=== PATIENT | female | born 1965 | race Caucasian/White ===

== ENCOUNTER 2017-07-17 12:22 | Inpatient (IN) | payer OTHER ==
[~2017-07-17] VITALS: Ht 157.5 cm; Wt 61.0 kg
[~2017-07-17 12:22] MED LIST: Augmentin 875-1 EACH PO; IBUP600 PO; PENVK500 PO; Prednisone20 MG PO; TRAM50 PO; [UNRECOGNIZED DRUG - OTHER] PO
[2017-07-17 12:33] LABS: PCO2 Arterial 29.8 mmHg (35-45); PO2 Arterial 54.6 mmHg (80-100); pH Blood Arterial 7.44 (7.35-7.45)
[2017-07-17 12:50] LABS: Calcium, Ionized (POC) 1.03 mmol/L (1.10-1.46); Chloride (POC) 91 mmol/L (98-108); Creatinine (POC) 0.6 mg/dL (0.6-1.0); Glucose (ISTAT POC) 252 mg/dL (70-99); Hemoglobin (POC) 17.7 g/dL (12.0-16.0); Potassium (POC) 3.9 mmol/L (3.5-5.5); Sodium (POC) 129 mmol/L (135-148); Total CO2 (POC) 23 mmol/L (21-32)
[2017-07-17 12:57] LABS: Hematocrit 47.4 % (33.0-51.0); Hemoglobin 16.6 g/dL (11.5-16.0); Mean Corpuscular Volume 88 fL (80-100); Mean Platelet Volume 9.8 fL (9.1-12.4); Platelet Count 203 K/mm3 (150-400); RDW Coefficient Variation 12.2 % (11.7-14.2); RDW Standard Deviation 39.9 fL (35.1-46.3); Red Blood Cell Count 5.36 M/mm3 (3.80-5.20); White Blood Cell Count 3.96 K/mm3 (4.00-11.30)
[2017-07-17 13:09] LABS: Source, Urine Catheter
[2017-07-17 13:09] LABS: International Normalized Ratio 1.08; Prothrombin Time Results 11.3 Sec (9.7-11.5)
[2017-07-17 13:12] LABS: Bilirubin, Urine Neg (Neg); Blood, Urine 3+ (Neg); Glucose Qualitative, Urine 4+ (Neg); Ketones, Urine 4+ (Neg); Leukocyte Esterase, Urine Neg (Neg); Nitrite, Urine Neg (Neg); Protein, Urine 3+ (Neg); Urobilinogen, Urine NORM (Normal)
[2017-07-17 13:16] LABS: Alanine Aminotransfer (ALT/SGP 27 U/L (12-78); Albumin, Blood 3.2 g/dL (3.4-5.0); Albumin/Globulin Ratio 0.6 (0.8-1.8); Alk Phos 65 U/L (50-136); Anion Gap 13 mmol/L (6-16); Aspartate Aminotrans (AST/SGOT 41 U/L (12-37); Bilirubin, Total 0.9 mg/dL (0.1-1.0); Blood Urea Nitrogen 14 mg/dL (8-24); Bun/Creatinine Ratio 23.3 (12.0-20.0); CO2, Blood 21 mmol/L (21-32); Calcium, Blood 9.2 mg/dL (8.5-10.1); Chloride, Blood 92 mmol/L (98-108); Globulin, Blood 5.7 g/dL (2.2-4.0); Glomerular Filtration Rate >60 (60-); Glucose, Blood 237 mg/dL (70-99); Potassium, Blood 3.9 mmol/L (3.5-5.5); Sodium, Blood 126 mmol/L (136-145); Total Protein, Blood 8.9 g/dL (6.4-8.2)
[2017-07-17 13:20] LABS: BASOPHILS PERCENT MAN 0 % (0-2); EOSINOPHILS PERCENT MAN 0 % (0-6); LYMPHOCYTES % ATYPICAL MANUAL 7 % (0-0); LYMPHOCYTES ABSOLUTE MAN 0.95 K/mm3 (0.84-5.20); LYMPHOCYTES PERCENT MAN 17 % (21-46); MONOCYTES ABSOLUTE MAN 0.39 K/mm3 (0.16-1.47); MONOCYTES PERCENT MAN 10 % (4-13); NEUTROPHILS ABSOLUTE MAN 2.61 K/mm3 (1.96-9.15); SEG NEUTROPHILS PERCENT MAN 66 % (41-73); TOTAL CELLS COUNTED 100
[2017-07-17 13:21] LABS: Appearance, Urine Clear (Clear); Color, Urine Yellow (P-Yellow)
[2017-07-17 13:22] LABS: Red Blood Cells, Urine 0-2 /hpf (0-2); White Blood Cells, Urine 0-2 /hpf (0-5)
[2017-07-17 13:23] LABS: Amorphous Light (0-Heavy); Bacteria Mod /hpf; Squamous Epithelial Cells Not Seen /hpf (Few)
[2017-07-17 13:41] LABS: Influenza A Negative (NEGATIVE); Influenza B Negative (NEGATIVE)
[2017-07-17 15:10] LABS: D-Dimer, Quantitative 4.88 mg/L FEU (0.00-0.52)
[2017-07-17] MEDS ORDERED: Advil200 M1 PO (15:40)
[2017-07-18 04:02] LABS: BASOPHILS ABSOLUTE AUTO 0.04 K/mm3 (0.00-0.23); BASOPHILS PERCENT AUTO 1 % (0-2); Hematocrit 36.6 % (33.0-51.0); Hemoglobin 12.6 g/dL (11.5-16.0); LYMPHOCYTES ABSOLUTE AUTO 0.54 K/mm3 (0.84-5.20); LYMPHOCYTES PERCENT AUTO 15 % (21-46); MONOCYTES ABSOLUTE AUTO 0.16 K/mm3 (0.16-1.47); MONOCYTES PERCENT AUTO 4 % (4-13); Mean Corpuscular HGB 30.7 pg (26.0-34.0); Mean Corpuscular HGB Conc 34.4 g/dL (31.5-36.5); Mean Corpuscular Volume 89 fL (80-100); Mean Platelet Volume 9.5 fL (9.1-12.4); Platelet Count 119 K/mm3 (150-400); RDW Coefficient Variation 12.1 % (11.7-14.2); White Blood Cell Count 3.64 K/mm3 (4.00-11.30)
[2017-07-18 04:15] LABS: EOSINOPHILS PERCENT AUTO 0 % (0-6); IMMATURE GRAN ABSOLUTE AUTO 0.02 K/mm3 (0.00-0.10); IMMATURE GRAN PERCENT AUTO 1 % (0-1); NEUTROPHILS ABSOLUTE AUTO 2.88 K/mm3 (1.96-9.15); NEUTROPHILS PERCENT AUTO 79 % (41-73)
[2017-07-18 04:17] LABS: International Normalized Ratio 1.26; Prothrombin Time Results 13.2 Sec (9.7-11.5)
[2017-07-18 04:22] LABS: Magnesium, Blood 1.6 mg/dL (1.6-2.4)
[2017-07-18 04:40] LABS: Alanine Aminotransfer (ALT/SGP 15 U/L (12-78); Albumin, Blood 1.9 g/dL (3.4-5.0); Albumin/Globulin Ratio 0.5 (0.8-1.8); Alk Phos 32 U/L (50-136); Aspartate Aminotrans (AST/SGOT 24 U/L (12-37); Bilirubin, Total 0.7 mg/dL (0.1-1.0); Blood Urea Nitrogen 7 mg/dL (8-24); Bun/Creatinine Ratio 16.1 (12.0-20.0); CO2, Blood 24 mmol/L (21-32); Chloride, Blood 105 mmol/L (98-108); Creatinine, Blood 0.43 mg/dL (0.40-1.00); Glomerular Filtration Rate >60 (60-); Glucose, Blood 160 mg/dL (70-99); Phosphorus, Blood 1.2 mg/dL (2.5-4.9); Potassium, Blood 3.1 mmol/L (3.5-5.5)
[2017-07-18 04:41] LABS: Anion Gap 9 mmol/L (6-16); Calcium, Blood 7.8 mg/dL (8.5-10.1); Sodium, Blood 138 mmol/L (136-145); Total Protein, Blood 5.9 g/dL (6.4-8.2)
[2017-07-18 04:50] LABS: BAND PERCENT MAN 33 % (0-8); BASOPHILS PERCENT MAN 0 % (0-2); EOSINOPHILS PERCENT MAN 0 % (0-6); LYMPHOCYTES ABSOLUTE MAN 0.61 K/mm3 (0.84-5.20); LYMPHOCYTES PERCENT MAN 17 % (21-46); METAMYELOCYTE PERCENT MAN 14 % (0-0); MONOCYTES ABSOLUTE MAN 0.18 K/mm3 (0.16-1.47); MONOCYTES PERCENT MAN 5 % (4-13); MYELOCYTE ABSOLUTE MAN 0.03 K/mm3 (0.00-0.00); MYELOCYTE PERCENT MAN 1 % (0-0); NEUTROPHILS ABSOLUTE MAN 2.29 K/mm3 (1.96-9.15); SEG NEUTROPHILS PERCENT MAN 30 % (41-73); TOTAL CELLS COUNTED 100
[2017-07-19 04:07] LABS: Hematocrit 33.3 % (33.0-51.0); Hemoglobin 11.7 g/dL (11.5-16.0); Mean Corpuscular HGB 31.5 pg (26.0-34.0); Mean Corpuscular HGB Conc 35.1 g/dL (31.5-36.5); Mean Corpuscular Volume 90 fL (80-100); Mean Platelet Volume 9.7 fL (9.1-12.4); Platelet Count 160 K/mm3 (150-400); RDW Coefficient Variation 12.6 % (11.7-14.2); Red Blood Cell Count 3.72 M/mm3 (3.80-5.20); White Blood Cell Count 7.72 K/mm3 (4.00-11.30)
[2017-07-19 04:29] LABS: Alanine Aminotransfer (ALT/SGP 14 U/L (12-78); Albumin, Blood 1.7 g/dL (3.4-5.0); Albumin/Globulin Ratio 0.4 (0.8-1.8); Alk Phos 35 U/L (50-136); Anion Gap 9 mmol/L (6-16); Aspartate Aminotrans (AST/SGOT 24 U/L (12-37); Bilirubin, Total 0.6 mg/dL (0.1-1.0); Blood Urea Nitrogen 7 mg/dL (8-24); Bun/Creatinine Ratio 18.8 (12.0-20.0); CO2, Blood 26 mmol/L (21-32); Chloride, Blood 105 mmol/L (98-108); Creatinine, Blood 0.37 mg/dL (0.40-1.00); Globulin, Blood 3.9 g/dL (2.2-4.0); Glomerular Filtration Rate >60 (60-); Glucose, Blood 79 mg/dL (70-99); Magnesium, Blood 2.1 mg/dL (1.6-2.4); Phosphorus, Blood 1.6 mg/dL (2.5-4.9); Potassium, Blood 3.2 mmol/L (3.5-5.5); Sodium, Blood 140 mmol/L (136-145); Total Protein, Blood 5.6 g/dL (6.4-8.2)
[2017-07-19 05:18] LABS: BAND PERCENT MAN 26 % (0-8); BASOPHILS PERCENT MAN 0 % (0-2); EOSINOPHILS PERCENT MAN 0 % (0-6); LYMPHOCYTES % ATYPICAL MANUAL 4 % (0-0); LYMPHOCYTES ABSOLUTE MAN 0.92 K/mm3 (0.84-5.20); LYMPHOCYTES PERCENT MAN 8 % (21-46); METAMYELOCYTE PERCENT MAN 4 % (0-0); MONOCYTES PERCENT MAN 4 % (4-13); NEUTROPHILS ABSOLUTE MAN 6.17 K/mm3 (1.96-9.15); SEG NEUTROPHILS PERCENT MAN 54 % (41-73); TOTAL CELLS COUNTED 100
[2017-07-19 05:27] LABS: International Normalized Ratio 1.08; Prothrombin Time Results 11.3 Sec (9.7-11.5)
[2017-07-20 04:50] LABS: Hemoglobin 11.2 g/dL (11.5-16.0); Mean Corpuscular HGB 30.8 pg (26.0-34.0); Mean Corpuscular Volume 88 fL (80-100); Mean Platelet Volume 9.6 fL (9.1-12.4); NRBC ABSOLUTE 0.03 K/mm3 (0.00-0.02); NRBC Auto 0.3 /100 WBC (0.0-0.2); Platelet Count 205 K/mm3 (150-400); RDW Coefficient Variation 12.6 % (11.7-14.2); RDW Standard Deviation 40.7 fL (35.1-46.3); Red Blood Cell Count 3.64 M/mm3 (3.80-5.20)
[2017-07-20 05:09] LABS: Alanine Aminotransfer (ALT/SGP 16 U/L (12-78); Albumin, Blood 1.5 g/dL (3.4-5.0); Albumin/Globulin Ratio 0.4 (0.8-1.8); Alk Phos 72 U/L (50-136); Anion Gap 11 mmol/L (6-16); Aspartate Aminotrans (AST/SGOT 21 U/L (12-37); Bilirubin, Total 1.1 mg/dL (0.1-1.0); Blood Urea Nitrogen 6 mg/dL (8-24); Bun/Creatinine Ratio 14.3 (12.0-20.0); CO2, Blood 26 mmol/L (21-32); Calcium, Blood 8.1 mg/dL (8.5-10.1); Chloride, Blood 103 mmol/L (98-108); Creatinine, Blood 0.42 mg/dL (0.40-1.00); Globulin, Blood 4.2 g/dL (2.2-4.0); Glomerular Filtration Rate >60 (60-); Glucose, Blood 142 mg/dL (70-99); Potassium, Blood 2.8 mmol/L (3.5-5.5); Sodium, Blood 140 mmol/L (136-145); Total Protein, Blood 5.7 g/dL (6.4-8.2)
[2017-07-20 05:11] LABS: BAND PERCENT MAN 7 % (0-8); BASOPHILS PERCENT MAN 0 % (0-2); EOSINOPHILS ABSOLUTE MAN 0.19 K/mm3 (0.00-0.68); EOSINOPHILS PERCENT MAN 2 % (0-6); LYMPHOCYTES % ATYPICAL MANUAL 1 % (0-0); LYMPHOCYTES ABSOLUTE MAN 0.68 K/mm3 (0.84-5.20); LYMPHOCYTES PERCENT MAN 6 % (21-46); MONOCYTES ABSOLUTE MAN 0.19 K/mm3 (0.16-1.47); MONOCYTES PERCENT MAN 2 % (4-13); NEUTROPHILS ABSOLUTE MAN 8.72 K/mm3 (1.96-9.15); SEG NEUTROPHILS PERCENT MAN 82 % (41-73); TOTAL CELLS COUNTED 100
[2017-07-20 06:42] LABS: Phosphorus, Blood 1.3 mg/dL (2.5-4.9)
[2017-07-20 08:08] LABS: Source, Urine Catheter
[2017-07-20 08:12] LABS: Bilirubin, Urine Neg (Neg); Blood, Urine Neg (Neg); Glucose Qualitative, Urine 4+ (Neg); Ketones, Urine 2+ (Neg); Leukocyte Esterase, Urine Neg (Neg); Nitrite, Urine Neg (Neg); Protein, Urine Neg (Neg); Specific Gravity, Urine 1.005 (1.003-1.022); Urobilinogen, Urine NORM (Normal)
[2017-07-20 08:20] LABS: Appearance, Urine Clear (Clear); Color, Urine Yellow (P-Yellow)
[2017-07-20 17:27] LABS: Magnesium, Blood 1.8 mg/dL (1.6-2.4)
[2017-07-20 17:28] LABS: Phosphorus, Blood 3.7 mg/dL (2.5-4.9)
[2017-07-21 04:02] LABS: Hematocrit 32.4 % (33.0-51.0); Mean Corpuscular HGB 30.6 pg (26.0-34.0); Mean Corpuscular Volume 90 fL (80-100); Mean Platelet Volume 9.4 fL (9.1-12.4); NRBC ABSOLUTE 0.02 K/mm3 (0.00-0.02); NRBC Auto 0.2 /100 WBC (0.0-0.2); Platelet Count 236 K/mm3 (150-400); RDW Coefficient Variation 13.2 % (11.7-14.2); RDW Standard Deviation 43.9 fL (35.1-46.3)
[2017-07-21 04:28] LABS: Magnesium, Blood 1.9 mg/dL (1.6-2.4)
[2017-07-21 04:29] LABS: Anion Gap 9 mmol/L (6-16); Blood Urea Nitrogen 6 mg/dL (8-24); Bun/Creatinine Ratio 14.8 (12.0-20.0); CO2, Blood 26 mmol/L (21-32); Calcium, Blood 7.8 mg/dL (8.5-10.1); Chloride, Blood 104 mmol/L (98-108); Creatinine, Blood 0.41 mg/dL (0.40-1.00); Glomerular Filtration Rate >60 (60-); Glucose, Blood 202 mg/dL (70-99); Phosphorus, Blood 2.8 mg/dL (2.5-4.9); Potassium, Blood 3.5 mmol/L (3.5-5.5); Sodium, Blood 139 mmol/L (136-145)
[2017-07-21 05:12] LABS: BAND PERCENT MAN 5 % (0-8); BASOPHILS PERCENT MAN 0 % (0-2); EOSINOPHILS PERCENT MAN 0 % (0-6); LYMPHOCYTES ABSOLUTE MAN 1.72 K/mm3 (0.84-5.20); LYMPHOCYTES PERCENT MAN 13 % (21-46); MONOCYTES ABSOLUTE MAN 0.79 K/mm3 (0.16-1.47); MONOCYTES PERCENT MAN 6 % (4-13); NEUTROPHILS ABSOLUTE MAN 10.77 K/mm3 (1.96-9.15); SEG NEUTROPHILS PERCENT MAN 76 % (41-73); TOTAL CELLS COUNTED 100
[2017-07-22 04:23] LABS: Hematocrit 29.5 % (33.0-51.0); Mean Corpuscular HGB 30.9 pg (26.0-34.0); Mean Corpuscular HGB Conc 33.9 g/dL (31.5-36.5); Mean Corpuscular Volume 91 fL (80-100); Mean Platelet Volume 9.3 fL (9.1-12.4); NRBC ABSOLUTE 0.02 K/mm3 (0.00-0.02); NRBC Auto 0.2 /100 WBC (0.0-0.2); Platelet Count 239 K/mm3 (150-400); RDW Coefficient Variation 13.3 % (11.7-14.2); RDW Standard Deviation 44.6 fL (35.1-46.3); Red Blood Cell Count 3.24 M/mm3 (3.80-5.20); White Blood Cell Count 13.23 K/mm3 (4.00-11.30)
[2017-07-22 04:42] LABS: Alanine Aminotransfer (ALT/SGP 18 U/L (12-78); Albumin, Blood 1.4 g/dL (3.4-5.0); Albumin/Globulin Ratio 0.3 (0.8-1.8); Alk Phos 92 U/L (50-136); Anion Gap 10 mmol/L (6-16); Aspartate Aminotrans (AST/SGOT 25 U/L (12-37); Bilirubin, Total 0.8 mg/dL (0.1-1.0); Blood Urea Nitrogen 9 mg/dL (8-24); Bun/Creatinine Ratio 19.9 (12.0-20.0); CO2, Blood 27 mmol/L (21-32); Chloride, Blood 106 mmol/L (98-108); Creatinine, Blood 0.45 mg/dL (0.40-1.00); Globulin, Blood 4.6 g/dL (2.2-4.0); Glomerular Filtration Rate >60 (60-); Glucose, Blood 161 mg/dL (70-99); Magnesium, Blood 2.1 mg/dL (1.6-2.4); Phosphorus, Blood 2.8 mg/dL (2.5-4.9); Potassium, Blood 3.9 mmol/L (3.5-5.5); Sodium, Blood 143 mmol/L (136-145)
[2017-07-22 05:09] LABS: PCO2 Arterial 38.4 mmHg (35-45); PO2 Arterial 82.3 mmHg (80-100); pH Blood Arterial 7.44 (7.35-7.45)
[2017-07-22 05:15] LABS: BAND PERCENT MAN 2 % (0-8); BASOPHILS PERCENT MAN 0 % (0-2); EOSINOPHILS PERCENT MAN 0 % (0-6); LYMPHOCYTES ABSOLUTE MAN 1.19 K/mm3 (0.84-5.20); LYMPHOCYTES PERCENT MAN 9 % (21-46); MONOCYTES ABSOLUTE MAN 0.79 K/mm3 (0.16-1.47); MONOCYTES PERCENT MAN 6 % (4-13); NEUTROPHILS ABSOLUTE MAN 11.24 K/mm3 (1.96-9.15); SEG NEUTROPHILS PERCENT MAN 83 % (41-73); TOTAL CELLS COUNTED 100
[2017-07-22 14:32] LABS: Heparin PF4 Screen 0.126 OD (<0.400)
[2017-07-23 04:05] LABS: BASOPHILS ABSOLUTE AUTO 0.02 K/mm3 (0.00-0.23); BASOPHILS PERCENT AUTO 0 % (0-2); EOSINOPHILS ABSOLUTE AUTO 0.08 K/mm3 (0.00-0.68); EOSINOPHILS PERCENT AUTO 1 % (0-6); Hematocrit 28.6 % (33.0-51.0); Hemoglobin 9.6 g/dL (11.5-16.0); IMMATURE GRAN ABSOLUTE AUTO 0.34 K/mm3 (0.00-0.10); IMMATURE GRAN PERCENT AUTO 2 % (0-1); LYMPHOCYTES ABSOLUTE AUTO 1.32 K/mm3 (0.84-5.20); LYMPHOCYTES PERCENT AUTO 9 % (21-46); MONOCYTES ABSOLUTE AUTO 0.74 K/mm3 (0.16-1.47); MONOCYTES PERCENT AUTO 5 % (4-13); Mean Corpuscular HGB 30.9 pg (26.0-34.0); Mean Corpuscular HGB Conc 33.6 g/dL (31.5-36.5); Mean Corpuscular Volume 92 fL (80-100); Mean Platelet Volume 9.7 fL (9.1-12.4); NEUTROPHILS ABSOLUTE AUTO 12.71 K/mm3 (1.96-9.15); NEUTROPHILS PERCENT AUTO 84 % (41-73); NRBC ABSOLUTE 0.03 K/mm3 (0.00-0.02); NRBC Auto 0.2 /100 WBC (0.0-0.2); Platelet Count 237 K/mm3 (150-400); RDW Coefficient Variation 13.6 % (11.7-14.2); Red Blood Cell Count 3.11 M/mm3 (3.80-5.20); White Blood Cell Count 15.21 K/mm3 (4.00-11.30)
[2017-07-23 04:28] LABS: Anion Gap 7 mmol/L (6-16); Blood Urea Nitrogen 8 mg/dL (8-24); Bun/Creatinine Ratio 19.9 (12.0-20.0); CO2, Blood 28 mmol/L (21-32); Calcium, Blood 7.5 mg/dL (8.5-10.1); Chloride, Blood 105 mmol/L (98-108); Glomerular Filtration Rate >60 (60-); Glucose, Blood 185 mg/dL (70-99); Magnesium, Blood 1.9 mg/dL (1.6-2.4); Phosphorus, Blood 3.2 mg/dL (2.5-4.9); Potassium, Blood 3.8 mmol/L (3.5-5.5); Sodium, Blood 140 mmol/L (136-145)
[2017-07-24 03:48] LABS: BASOPHILS ABSOLUTE AUTO 0.02 K/mm3 (0.00-0.23); BASOPHILS PERCENT AUTO 0 % (0-2); EOSINOPHILS ABSOLUTE AUTO 0.05 K/mm3 (0.00-0.68); EOSINOPHILS PERCENT AUTO 0 % (0-6); Hematocrit 27.2 % (33.0-51.0); IMMATURE GRAN PERCENT AUTO 2 % (0-1); LYMPHOCYTES ABSOLUTE AUTO 1.69 K/mm3 (0.84-5.20); LYMPHOCYTES PERCENT AUTO 14 % (21-46); MONOCYTES ABSOLUTE AUTO 0.55 K/mm3 (0.16-1.47); MONOCYTES PERCENT AUTO 5 % (4-13); Mean Corpuscular HGB 30.5 pg (26.0-34.0); Mean Corpuscular HGB Conc 33.1 g/dL (31.5-36.5); Mean Corpuscular Volume 92 fL (80-100); Mean Platelet Volume 9.7 fL (9.1-12.4); NEUTROPHILS ABSOLUTE AUTO 9.36 K/mm3 (1.96-9.15); NEUTROPHILS PERCENT AUTO 79 % (41-73); NRBC ABSOLUTE 0.02 K/mm3 (0.00-0.02); NRBC Auto 0.2 /100 WBC (0.0-0.2); Platelet Count 212 K/mm3 (150-400); RDW Coefficient Variation 13.6 % (11.7-14.2); RDW Standard Deviation 45.1 fL (35.1-46.3); Red Blood Cell Count 2.95 M/mm3 (3.80-5.20); White Blood Cell Count 11.87 K/mm3 (4.00-11.30)
[2017-07-24 04:14] LABS: Alanine Aminotransfer (ALT/SGP 27 U/L (12-78); Albumin/Globulin Ratio 0.5 (0.8-1.8); Alk Phos 114 U/L (50-136); Anion Gap 8 mmol/L (6-16); Aspartate Aminotrans (AST/SGOT 44 U/L (12-37); Bilirubin, Total 1.1 mg/dL (0.1-1.0); Blood Urea Nitrogen 8 mg/dL (8-24); Bun/Creatinine Ratio 18.1 (12.0-20.0); CO2, Blood 28 mmol/L (21-32); Calcium, Blood 7.7 mg/dL (8.5-10.1); Chloride, Blood 102 mmol/L (98-108); Creatinine, Blood 0.44 mg/dL (0.40-1.00); Glomerular Filtration Rate >60 (60-); Glucose, Blood 186 mg/dL (70-99); Potassium, Blood 3.6 mmol/L (3.5-5.5); Sodium, Blood 138 mmol/L (136-145)
[2017-07-24 05:16] LABS: PO2 Arterial 64.8 mmHg (80-100); pH Blood Arterial 7.51 (7.35-7.45)
[2017-07-25 03:54] LABS: BASOPHILS ABSOLUTE AUTO 0.02 K/mm3 (0.00-0.23); BASOPHILS PERCENT AUTO 0 % (0-2); EOSINOPHILS ABSOLUTE AUTO 0.05 K/mm3 (0.00-0.68); EOSINOPHILS PERCENT AUTO 1 % (0-6); Hematocrit 27.2 % (33.0-51.0); IMMATURE GRAN ABSOLUTE AUTO 0.13 K/mm3 (0.00-0.10); IMMATURE GRAN PERCENT AUTO 1 % (0-1); LYMPHOCYTES ABSOLUTE AUTO 1.37 K/mm3 (0.84-5.20); LYMPHOCYTES PERCENT AUTO 13 % (21-46); MONOCYTES ABSOLUTE AUTO 0.53 K/mm3 (0.16-1.47); MONOCYTES PERCENT AUTO 5 % (4-13); Mean Corpuscular HGB 30.3 pg (26.0-34.0); Mean Corpuscular HGB Conc 33.1 g/dL (31.5-36.5); Mean Corpuscular Volume 92 fL (80-100); Mean Platelet Volume 9.5 fL (9.1-12.4); NEUTROPHILS ABSOLUTE AUTO 8.34 K/mm3 (1.96-9.15); NEUTROPHILS PERCENT AUTO 80 % (41-73); NRBC ABSOLUTE 0.02 K/mm3 (0.00-0.02); NRBC Auto 0.2 /100 WBC (0.0-0.2); Platelet Count 256 K/mm3 (150-400); RDW Coefficient Variation 13.4 % (11.7-14.2); Red Blood Cell Count 2.97 M/mm3 (3.80-5.20); White Blood Cell Count 10.44 K/mm3 (4.00-11.30)
[2017-07-25 04:12] LABS: Alanine Aminotransfer (ALT/SGP 58 U/L (12-78); Albumin, Blood 1.8 g/dL (3.4-5.0); Albumin/Globulin Ratio 0.4 (0.8-1.8); Alk Phos 150 U/L (50-136); Anion Gap 7 mmol/L (6-16); Aspartate Aminotrans (AST/SGOT 87 U/L (12-37); Bilirubin, Total 1.2 mg/dL (0.1-1.0); Blood Urea Nitrogen 5 mg/dL (8-24); Bun/Creatinine Ratio 12.9 (12.0-20.0); CO2, Blood 29 mmol/L (21-32); Calcium, Blood 7.4 mg/dL (8.5-10.1); Chloride, Blood 102 mmol/L (98-108); Creatinine, Blood 0.39 mg/dL (0.40-1.00); Globulin, Blood 4.4 g/dL (2.2-4.0); Glomerular Filtration Rate >60 (60-); Glucose, Blood 188 mg/dL (70-99); Potassium, Blood 3.1 mmol/L (3.5-5.5); Sodium, Blood 138 mmol/L (136-145); Total Protein, Blood 6.2 g/dL (6.4-8.2)
[2017-07-26 04:08] LABS: BASOPHILS ABSOLUTE AUTO 0.01 K/mm3 (0.00-0.23); BASOPHILS PERCENT AUTO 0 % (0-2); EOSINOPHILS ABSOLUTE AUTO 0.05 K/mm3 (0.00-0.68); EOSINOPHILS PERCENT AUTO 1 % (0-6); Hematocrit 26.8 % (33.0-51.0); Hemoglobin 8.9 g/dL (11.5-16.0); IMMATURE GRAN ABSOLUTE AUTO 0.16 K/mm3 (0.00-0.10); IMMATURE GRAN PERCENT AUTO 2 % (0-1); LYMPHOCYTES ABSOLUTE AUTO 1.57 K/mm3 (0.84-5.20); LYMPHOCYTES PERCENT AUTO 16 % (21-46); MONOCYTES ABSOLUTE AUTO 0.62 K/mm3 (0.16-1.47); MONOCYTES PERCENT AUTO 7 % (4-13); Mean Corpuscular HGB 30.8 pg (26.0-34.0); Mean Corpuscular HGB Conc 33.2 g/dL (31.5-36.5); Mean Corpuscular Volume 93 fL (80-100); Mean Platelet Volume 9.8 fL (9.1-12.4); NEUTROPHILS ABSOLUTE AUTO 7.18 K/mm3 (1.96-9.15); NEUTROPHILS PERCENT AUTO 75 % (41-73); Platelet Count 307 K/mm3 (150-400); RDW Coefficient Variation 13.8 % (11.7-14.2); RDW Standard Deviation 46.1 fL (35.1-46.3); Red Blood Cell Count 2.89 M/mm3 (3.80-5.20); White Blood Cell Count 9.59 K/mm3 (4.00-11.30)
[2017-07-26 04:29] LABS: Alanine Aminotransfer (ALT/SGP 47 U/L (12-78); Albumin, Blood 1.8 g/dL (3.4-5.0); Albumin/Globulin Ratio 0.4 (0.8-1.8); Alk Phos 140 U/L (50-136); Anion Gap 8 mmol/L (6-16); Aspartate Aminotrans (AST/SGOT 44 U/L (12-37); Bilirubin, Total 0.7 mg/dL (0.1-1.0); Blood Urea Nitrogen 4 mg/dL (8-24); Bun/Creatinine Ratio 8.6 (12.0-20.0); CO2, Blood 26 mmol/L (21-32); Calcium, Blood 7.7 mg/dL (8.5-10.1); Chloride, Blood 106 mmol/L (98-108); Creatinine, Blood 0.47 mg/dL (0.40-1.00); Globulin, Blood 4.6 g/dL (2.2-4.0); Glomerular Filtration Rate >60 (60-); Glucose, Blood 240 mg/dL (70-99); Potassium, Blood 3.4 mmol/L (3.5-5.5); Sodium, Blood 140 mmol/L (136-145); Total Protein, Blood 6.4 g/dL (6.4-8.2)
[2017-07-26 04:31] LABS: Percent Saturation 33.9 % (15.0-50.0)
[2017-07-27 04:36] LABS: Hematocrit 30.1 % (33.0-51.0); Hemoglobin 9.9 g/dL (11.5-16.0); Mean Corpuscular HGB 30.4 pg (26.0-34.0); Mean Corpuscular HGB Conc 32.9 g/dL (31.5-36.5); Mean Corpuscular Volume 92 fL (80-100); Mean Platelet Volume 9.5 fL (9.1-12.4); Platelet Count 409 K/mm3 (150-400); RDW Coefficient Variation 13.7 % (11.7-14.2); RDW Standard Deviation 45.1 fL (35.1-46.3); Red Blood Cell Count 3.26 M/mm3 (3.80-5.20); White Blood Cell Count 11.12 K/mm3 (4.00-11.30)
[2017-07-27 04:50] LABS: Anion Gap 8 mmol/L (6-16); Blood Urea Nitrogen 4 mg/dL (8-24); Bun/Creatinine Ratio 10.1 (12.0-20.0); CO2, Blood 26 mmol/L (21-32); Calcium, Blood 8.2 mg/dL (8.5-10.1); Chloride, Blood 103 mmol/L (98-108); Glomerular Filtration Rate >60 (60-); Glucose, Blood 136 mg/dL (70-99); Potassium, Blood 3.6 mmol/L (3.5-5.5); Sodium, Blood 137 mmol/L (136-145)
[2017-07-28 10:50] LABS: Vancomycin, Trough 13.7 ug/mL (5.0-10.0)
[2017-07-29 12:02] LABS: Creatinine, Blood 0.45 mg/dL (0.40-1.00); Vancomycin, Trough 17.5 ug/mL (5.0-10.0)
[2017-07-31 12:03] LABS: Vancomycin, Trough 16.4 ug/mL (5.0-10.0)
[2017-08-02 06:46] LABS: Hematocrit 30.9 % (33.0-51.0); Hemoglobin 9.9 g/dL (11.5-16.0); Mean Corpuscular HGB 30.7 pg (26.0-34.0); Mean Platelet Volume 8.6 fL (9.1-12.4); Platelet Count 530 K/mm3 (150-400); RDW Standard Deviation 49.4 fL (35.1-46.3); Red Blood Cell Count 3.22 M/mm3 (3.80-5.20); White Blood Cell Count 9.01 K/mm3 (4.00-11.30)
[2017-08-02 06:47] LABS: Mean Corpuscular Volume 96 fL (80-100)
[2017-08-02 07:08] LABS: Anion Gap 8 mmol/L (6-16); Blood Urea Nitrogen 7 mg/dL (8-24); Bun/Creatinine Ratio 9.8 (12.0-20.0); CO2, Blood 26 mmol/L (21-32); Calcium, Blood 8.6 mg/dL (8.5-10.1); Chloride, Blood 101 mmol/L (98-108); Creatinine, Blood 0.71 mg/dL (0.40-1.00); Glomerular Filtration Rate >60 (60-); Glucose, Blood 230 mg/dL (70-99); Potassium, Blood 4.1 mmol/L (3.5-5.5); Sodium, Blood 135 mmol/L (136-145)
[2017-08-02 12:39] LABS: Vancomycin, Trough 21.5 ug/mL (5.0-10.0)
[2017-08-02] MEDS ORDERED: FAMO20 PO (14:32)
[2017-08-02] MEDS ORDERED: Ferrous Sulfat324 MG PO (14:33)
[2017-08-02] MEDS ORDERED: GUAI600T33 PO (14:34)
[2017-08-02] MEDS ORDERED: METO25 PO (14:35)
[2017-08-02] MEDS ORDERED: MIRT30ST PO (14:36)
[2017-08-02] MEDS ORDERED: ALBU3IS INH (14:40)
[2017-08-02] MEDS ORDERED: ALBU90OI INH (14:41)
[2017-08-02] MEDS ORDERED: DULERA 100 MCG/13 GM INH (15:02)
[2017-08-02] MEDS ORDERED: TIOT18 INH (15:02)
== END 2017-08-02 16:36 | disposition home or self-care (01) | DRG 871 ==
LOC: ER 12:22 → ICUW 13:45 → PCU 07-25 13:42 → MEDS 07-28 13:42 → ENPENDDIS 08-02 10:00 → MEDS 08-02 16:36
PROVIDERS: Emergency Medicine; Family Medicine; Internal Medicine; Internal Medicine Critical Care Medicine; Internal Medicine Pulmonary Disease
PROC: 5A09557 Assistance with Respiratory Ventilation, Greater than 96 Consecutive Hours, Continuous Positive Airway Pressure (ICD-10-PCS; principal; 2017-07-17)
DX: A41.01 Sepsis due to Methicillin susceptible Staphylococcus aureus (principal); J15.211 Pneumonia due to Methicillin susceptible Staphylococcus aureus; J96.21 Acute and chronic respiratory failure with hypoxia; D69.6 Thrombocytopenia, unspecified; E87.8 Other disorders of electrolyte and fluid balance, not elsewhere classified; E88.09 Other disorders of plasma-protein metabolism, not elsewhere classified; I82.612 Acute embolism and thrombosis of superficial veins of left upper extremity; J44.0 Chronic obstructive pulmonary disease with (acute) lower respiratory infection; J44.1 Chronic obstructive pulmonary disease with (acute) exacerbation; R65.20 Severe sepsis without septic shock; E87.6 Hypokalemia; F17.210 Nicotine dependence, cigarettes, uncomplicated; F32.9 Major depressive disorder, single episode, unspecified; F41.9 Anxiety disorder, unspecified; K21.9 Gastro-esophageal reflux disease without esophagitis; M25.511 Pain in right shoulder; Z79.01 Long term (current) use of anticoagulants; Z88.2 Allergy status to sulfonamides; Z88.1 Allergy status to other antibiotic agents; R73.9 Hyperglycemia, unspecified
CPT/HCPCS: 36415; 36600; 51702; 71045; 71260; 80047; 80048; 80053; 80202; 81001; 81003; 82330; 82565; 82728; 82803; 82947; 83540; 83550; 83605; 83735; 84100; 84132; 85007; 85014; 85025; 85027; 85379; 85384; 85610; 85730; 86022; 87040; 87070; 87077; 87086; 87147; 87186; 87205; 87493; 87804; 93005; 93010; 93971; 94060; 94640; 94660; 94664; 94667; 94668; 94760; 94761; 94762; 96365; 96375; 97110; 97116; 97162; 97166; 97530; 97535; 98960; 99285; C1751; C9113; G8978; G8979; G8987; G8988; J0456; J0696; J1650; J1885; J1956; J2001; J2060; J2405; J2550; J3370; J3475; J3480; J7030; J7040; J7050; J7120; P9041; Q9967

== ENCOUNTER → 2018-07-25 | Outpatient (CLI) | payer OTHER ==
[~2018-07-25] MED LIST changes: +ALBU3IS INH; +ALBU90OI INH; +Advil200 M1 PO; +DULERA 100 MCG/13 GM INH; +FAMO20 PO; +Ferrous Sulfat324 MG PO; +GUAI600T33 PO; +METO25 PO; +MIRT30ST PO; +TIOT18 INH
[2018-07-27 19:07] LABS: LEAD/CREAT. RATIO <3 (0-49); MERCURY/CREAT. RATIO <3 (0-5)
== END | disposition home or self-care (01) ==
LOC: LAB SHORT 14:10 → LAB 14:10
DX: T65.91XA Toxic effect of unspecified substance, accidental (unintentional), initial encounter (principal)
CPT/HCPCS: 82175; 82570; 83655; 83825

== ENCOUNTER 2025-01-30 06:07 | Day surgery (SDC) | payer OTHER ==
[~2025-01-30] VITALS: Ht 160 cm; Wt 64.5 kg
[~2025-01-30 06:07] MED LIST changes: +Balanced Salt Epinephrine Irrigation Solution 500 mL IR SCH; +Moxifloxacin HCL 0.5 MG/0.1 ML 0.4MLSYR LEFTEYE SCH; +Ondansetron 4 MG SoluTab MM PRN; +PHENYLEPHRINE\\TROPICAMIDE\\TETRACAINE OPHTHALMIC DILATING SOLN LEFTEYE PRN; +Povidone-Iodine 450 DROP/30 ML Solution LEFTEYE SCH; +Povidone-Iodine 450 DROP/30 ML Solution ONE; +Tetracaine HCl/Pf 0.5% Opth Soln 4 ml ONE
--- NOTE | 2025-01-30 06:29 | NUR ---
01/30/25 0629 Erika Molina PT REPORTS SHE IS VERY NERVOUS TODAY. RATES ANXIETY AT 10/10 PRIOR TO ADMINISTRATION OF VALIUM 10MG AT 0627.
[2025-01-30] MEDS ORDERED: OMEP20ER PO (06:36)
[2025-01-30] MEDS ORDERED: Loratadine10 MG PO (06:36)
[2025-01-30] MEDS ORDERED: FLUT.05NI (06:37)
--- NOTE | 2025-01-30 07:46 | NUR ---
01/30/25 0746 Myranda Saul 0732 BP140/88 HR:91 O2:96 RESP:16
--- NOTE | 2025-01-30 07:50 | NUR ---
01/30/[address] AT BEDSIDE
[2025-01-30 07:55] VITALS: BP 140/94
== END 2025-01-30 08:07 | disposition home or self-care (01) ==
LOC: ORSCSDS 06:07
PROVIDERS: Student in an Organized Health Care Education/Training Program
PROC: 08RK3JZ Replacement of Left Lens with Synthetic Substitute, Percutaneous Approach (ICD-10-PCS; principal; 2025-01-30 07:30)
DX: E11.36 Type 2 diabetes mellitus with diabetic cataract (principal); H25.812 Combined forms of age-related cataract, left eye; Z96.1 Presence of intraocular lens; Z79.899 Other long term (current) drug therapy
CPT/HCPCS: A9270; J2003; V2632